=== PATIENT | male | born 1980 | race Caucasian/White ===

== ENCOUNTER 2020-05-31 11:06 | Emergency (ER) | payer SELFPAY ==
[~2020-05-31] VITALS: Ht 167.6 cm; Wt 97.5 kg
[2020-05-31 11:29] VITALS: Ht 167.6 cm; Wt 97.5 kg
[2020-05-31 13:05] VITALS: BP 145/77
== END 2020-05-31 13:05 | disposition home or self-care (01) ==
LOC: ED 11:06
DX: S20.212A Contusion of left front wall of thorax, initial encounter (principal); S60.811A Abrasion of right wrist, initial encounter; J45.909 Unspecified asthma, uncomplicated; V00.131A Fall from skateboard, initial encounter; Y93.51 Activity, roller skating (inline) and skateboarding; Y92.89 Other specified places as the place of occurrence of the external cause; Y99.8 Other external cause status
CPT/HCPCS: 90715